=== PATIENT | female | born 1955 | race Caucasian/White ===

== ENCOUNTER 2018-06-02 00:34 | Emergency (ER) | payer OTHER, SELFPAY ==
--- NOTE | 2018-06-02 00:39 | ED.NECK ---
HPI - Neck Pain/Injury General Chief Complaint: Extremity Problem,Nontraumatic Stated Complaint: NECK PAIN/RIGHT ARM PAIN SAW CHIROPRACTOR Time Seen by Provider: 06/02/18 00:36 Source: patient and family Mode of arrival: ambulatory Limitations: no limitations History of Present Illness HPI Narrative: 63-year-old female nonsmoker with history of hypertension presents with a friend in the chief complaint of neck pain with radiation to her right shoulder and upper arm. Any motion of her neck great significant pain that seems to radiate down her arm. She has some numbness and tingling right shoulder. She denies any specific injury. she saw a chiropractor and had an adjustment earlier and that seemed to maybe help. She denies any focal neurologic findings such as blurred vision, trouble with speech or weakness of her arm. She denies any chest pain or shortness of breath. She is not dizzy nor weak or lightheaded. She is not diaphoretic nor nauseous and has not vomited MD complaint: neck pain Onset (ago): day(s) Radiation: right lateral Severity: moderate Quality: sharp and aching Duration: intermittent Relieving factors: remaining still Exacerbating factors: movement of extremity and movement of neck Associated symptoms: numbness and tingling Treatments prior to arrival: heat therapy Related Data Home Medications Medication Instructions Recorded Confirmed [red rice yeast] #0 10/22/16 aspirin 81 mg PO QDAY #0 10/22/16 cholecalciferol (vitamin D3) 5,000 unit PO #0 10/22/16 coenzyme Q10 [Co Q-10] 100 mg PO #0 10/22/16 cyanocobalamin (vitamin B-12) 5,000 mcg PO #0 10/22/16 folic acid 0.8 mg PO QDAY #0 10/22/16 hydrochlorothiazide 12.5 mg PO QDAY #0 10/22/16 losartan 50 mg PO QDAY #0 10/22/16 niacin [Niaspan Extended-Release] 500 mg PO QDAY #0 10/22/16 omega 3-qrv-vas-fish oil [Fish Oil] 1,000 mg PO #0 10/22/16 Previous Rx's Medication Instructions Recorded methylprednisolone 4 mg PO QDAY #1 pac 10/22/16 nabumetone 750 mg PO QDAY #30 tab 10/22/16 cyclobenzaprine 10 mg PO TID PRN #14 tab 06/02/18 hydrocodone-acetaminophen 1 tab PO Q4-6H PRN #10 tab 06/02/18 ibuprofen 600 mg PO TID-QID PRN #20 tab 06/02/18 methylprednisolone [Medrol (Go)] See Rx Instructions .ROUTE 06/02/18 .COMPLEX #21 each Allergies Allergy/AdvReac Type Severity Reaction Status Date / Time No Known Allergies Allergy Uncoded 06/03/17 11:54 Review of Systems Constitutional Denies chills, Denies fever(s), Denies lethargy and Denies weakness Eyes Denies change in vision, Denies eye discharge, Denies irritation and Denies loss of vision ENT Ears, Nose, Mouth, and Throat: Denies change in voice, Reports neck pain and Denies sore throat Cardiovascular Denies chest pain, Denies irregular heart rhythm, Denies lightheadedness, Denies palpitations, Denies dyspnea, Denies dyspnea on exertion and Denies orthopnea Respiratory Denies cough, Denies dyspnea, Denies dyspnea on exertion and Denies wheezing Gastrointestinal Gastrointestinal: Denies abdominal pain, Denies change in bowel habits, Denies diarrhea, Denies nausea and Denies vomiting Genitourinary Denies hematuria, Denies flank pain, Denies urinary incontinence and Denies urinary urgency Musculoskeletal Reports limited range of motion, Reports neck pain, Reports radiating pain into limb and Reports tingling Integumentary/Breasts Denies pruritus, Denies erythema, Denies rash and Denies wounds Neurologic Denies confusion, Denies loss of vision, Reports tingling and Denies weakness Psychiatric Denies anxiety, Denies confusion, Denies depression, Denies homicidal ideation and Denies suicidal ideation Endocrine Denies palpitations Hematologic/Lymphatic Denies easy bruising Allergic/Immunologic Denies wheezing PFSH Social History Smoking Status: Former smoker Social History Smoking Status: Former smoker Exam Narrative Exam Narrative: GENERAL: 63-year-old female resting comfortably, obvious episodes of discomfort, remaining quite still HEAD: Atraumatic. Normocephalic. No temporal or scalp tenderness. EYES: Pupils equal round and reactive. Extraocular motions intact. No scleral icterus. No injection or drainage. ENT: Nose without bleeding, purulent drainage or septal hematoma. Throat without erythema, tonsillar hypertrophy or exudate. Uvula midline. Airway patent. NECK: Trachea midline. No JVD or lymphadenopathy. Pain to palpation of right lateral paraspinal muscles. Axial loading seems to exacerbate the pain in the side of her neck some. CARDIOVASCULAR: Regular rate and rhythm without murmurs, gallops, or rubs. RESPIRATORY: Clear to auscultation. Breath sounds equal bilaterally. No wheezes, rales, or rhonchi. GASTROINTESTINAL: Abdomen soft, non-tender, nondistended. No hepato-splenomegaly, or palpable masses. No guarding. EXTREMITIES: Pain on palpation of supraspinatus and infrahilar spine anus as well as right paraspinal musculature No clubbing, cyanosis, or edema. No joint tenderness, effusion, or edema noted. BACK: Nontender without deformity or crepitance. No flank tenderness. NEURO: AOx3. full sensation and strenght of RUE SKIN: No rash or erythema. Initial Vital Signs Initial Vital Signs: Vital Signs Temperature 97.8 F 06/02/18 00:50 Pulse Rate 71 06/02/18 00:50 Respiratory Rate 16 06/02/18 00:50 Blood Pressure 155/69 H 06/02/18 00:50 Pulse Oximetry 97 06/02/18 00:50 Procedures Orthopedic Splinting/Casting Injury #1: Post splinting neuro exam: intact Post splinting vascular exam: intact Placed by: Nursing Additional Comments: soft cervical collar applied Course Orders Ordered: ED Orders 06/02/18 00:53 EKG-12 Lead Stat Discontinued Medications Cyclobenzaprine HCl (Flexeril 10 Mg Prepack) 1 bottle [facility] ONE Stop: 06/02/18 01:55 Last Admin: 06/02/18 02:07 Dose: 1 bottle Vital Signs - 8 hr 06/02/18 00:50 06/02/18 02:43 Temperature 97.8 F Pulse Rate 71 70 Respiratory Rate 16 16 Blood Pressure 155/69 H 162/58 H Pulse Oximetry 97 99 MDM - Neck Pain/Injury MDM Narrative Medical decision making narrative: Multiple etiologies for patient's symptoms considered including: [Coronary artery disease versus cervical radiculopathy versus dissection versus other] Patient's symptoms improved or duration of stay with above-stated therapies. Findings and discharge diagnosis discussed with patient/family followed by verbalization of understanding Return precautions discussed with patient/family whom verbalize understanding. Discharge Plan Departure Patient Disposition: Home Clinical Impression: Cervical radiculopathy Discharge Date/Time: 06/02/18 02:44 Interventions: ED Discharge Assessment Last Done: 06/02/18 02:43 Instructions: DI for Cervical Radiculopathy Activity Restrictions/Additional Instructions: You have been prescribed narcotic medications. While on these medications you cannot drive or operate heavy machinery. Additionally you cannot sign legal documents or perform any duties such as this. 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 Please understand that we cannot provide further refills of narcotics or controlled substances through the ED and your pain management will need to be through your Primary Care Provider Prescriptions: New cyclobenzaprine 10 mg tablet 10 mg PO TID PRN (Reason: muscle spasm) Qty: 14 RF: 0 hydrocodone-acetaminophen 5-325 mg tablet 1 tab PO Q4-6H PRN (Reason: pain) Qty: 10 RF: 0 ibuprofen 600 mg tablet 600 mg PO TID-QID PRN (Reason: pain) Qty: 20 RF: 0 methylprednisolone [Medrol (Og)] 4 mg tablets,dose pack See Rx Instructions .ROUTE .COMPLEX Qty: 21 RF: 0 No Action losartan 50 MG tablet 50 mg PO QDAY Qty: 0 RF: 0 hydrochlorothiazide 12.5 MG capsule 12.5 mg PO QDAY Qty: 0 RF: 0 aspirin 81 MG tablet,chewable 81 mg PO QDAY Qty: 0 RF: 0 niacin [Niaspan Extended-Release] 500 MG tablet extended release 24 hr 500 mg PO QDAY Qty: 0 RF: 0 omega 4-pen-pqc-fish oil [Fish Oil] 1,000 MG capsule 1,000 mg PO Qty: 0 RF: 0 cholecalciferol (vitamin D3) 5,000 UNIT capsule 5,000 unit PO Qty: 0 RF: 0 [red rice yeast] Qty: 0 RF: 0 coenzyme Q10 [Co Q-10] 100 MG capsule 100 mg PO Qty: 0 RF: 0 folic acid 0.8 MG tablet 0.8 mg PO QDAY Qty: 0 RF: 0 cyanocobalamin (vitamin B-12) 5,000 MCG tablet,disintegrating 5,000 mcg PO Qty: 0 RF: 0 nabumetone 750 MG tablet 750 mg PO QDAY Qty: 30 RF: 2 methylprednisolone 4 MG tablets,dose pack 4 mg PO QDAY Qty: 1 RF: 0 Referrals: Nicole Salmeron MD [Primary Care Provider] - Riaz eSo MD [Physician] -
[2018-06-02 00:50] VITALS: BP 155/69; PULSE 71; RESP 16; TEMP 36.6; O2SAT 97; BMI 33.0
[2018-06-02] MEDS: CYCLOBENZAPRINE 10 MG PREPACK 1 BOTTLE MISC (02:07)
[2018-06-02 02:43] VITALS: BP 162/58; PULSE 70; RESP 16; O2SAT 99
--- NOTE | 2018-06-02 03:51 | ED_ITS ---
HPI - Neck Pain/Injury General Chief Complaint: Extremity Problem,Nontraumatic Stated Complaint: NECK PAIN/RIGHT ARM PAIN SAW CHIROPRACTOR Time Seen by Provider: 06/02/18 00:36 Source: patient and family Mode of arrival: ambulatory Limitations: no limitations History of Present Illness HPI Narrative: 63-year-old female nonsmoker with history of hypertension presents with a friend in the chief complaint of neck pain with radiation to her right shoulder and upper arm. Any motion of her neck great significant pain that seems to radiate down her arm. She has some numbness and tingling right shoulder. She denies any specific injury. she saw a chiropractor and had an adjustment earlier and that seemed to maybe help. She denies any focal neurologic findings such as blurred vision, trouble with speech or weakness of her arm. She denies any chest pain or shortness of breath. She is not dizzy nor weak or lightheaded. She is not diaphoretic nor nauseous and has not vomited MD complaint: neck pain Onset (ago): day(s) Radiation: right lateral Severity: moderate Quality: sharp and aching Duration: intermittent Relieving factors: remaining still Exacerbating factors: movement of extremity and movement of neck Associated symptoms: numbness and tingling Treatments prior to arrival: heat therapy Related Data Home Medications Medication Instructions Recorded Confirmed [red rice yeast] #0 10/22/16 aspirin 81 mg PO QDAY #0 10/22/16 cholecalciferol (vitamin D3) 5,000 unit PO #0 10/22/16 coenzyme Q10 [Co Q-10] 100 mg PO #0 10/22/16 cyanocobalamin (vitamin B-12) 5,000 mcg PO #0 10/22/16 folic acid 0.8 mg PO QDAY #0 10/22/16 hydrochlorothiazide 12.5 mg PO QDAY #0 10/22/16 losartan 50 mg PO QDAY #0 10/22/16 niacin [Niaspan Extended-Release] 500 mg PO QDAY #0 10/22/16 omega 9-xgx-chu-fish oil [Fish Oil] 1,000 mg PO #0 10/22/16 Previous Rx's Medication Instructions Recorded methylprednisolone 4 mg PO QDAY #1 pac 10/22/16 nabumetone 750 mg PO QDAY #30 tab 10/22/16 cyclobenzaprine 10 mg PO TID PRN #14 tab 06/02/18 hydrocodone-acetaminophen 1 tab PO Q4-6H PRN #10 tab 06/02/18 ibuprofen 600 mg PO TID-QID PRN #20 tab 06/02/18 methylprednisolone [Medrol (Og)] See Rx Instructions .ROUTE 06/02/18 .COMPLEX #21 each Allergies Allergy/AdvReac Type Severity Reaction Status Date / Time No Known Allergies Allergy Uncoded 06/03/17 11:54 Review of Systems Constitutional Denies chills, Denies fever(s), Denies lethargy and Denies weakness Eyes Denies change in vision, Denies eye discharge, Denies irritation and Denies loss of vision ENT Ears, Nose, Mouth, and Throat: Denies change in voice, Reports neck pain and Denies sore throat Cardiovascular Denies chest pain, Denies irregular heart rhythm, Denies lightheadedness, Denies palpitations, Denies dyspnea, Denies dyspnea on exertion and Denies orthopnea Respiratory Denies cough, Denies dyspnea, Denies dyspnea on exertion and Denies wheezing Gastrointestinal Gastrointestinal: Denies abdominal pain, Denies change in bowel habits, Denies diarrhea, Denies nausea and Denies vomiting Genitourinary Denies hematuria, Denies flank pain, Denies urinary incontinence and Denies urinary urgency Musculoskeletal Reports limited range of motion, Reports neck pain, Reports radiating pain into limb and Reports tingling Integumentary/Breasts Denies pruritus, Denies erythema, Denies rash and Denies wounds Neurologic Denies confusion, Denies loss of vision, Reports tingling and Denies weakness Psychiatric Denies anxiety, Denies confusion, Denies depression, Denies homicidal ideation and Denies suicidal ideation Endocrine Denies palpitations Hematologic/Lymphatic Denies easy bruising Allergic/Immunologic Denies wheezing PFSH Social History Smoking Status: Former smoker Social History Smoking Status: Former smoker Exam Narrative Exam Narrative: GENERAL: 63-year-old female resting comfortably, obvious episodes of discomfort, remaining quite still HEAD: Atraumatic. Normocephalic. No temporal or scalp tenderness. EYES: Pupils equal round and reactive. Extraocular motions intact. No scleral icterus. No injection or drainage. ENT: Nose without bleeding, purulent drainage or septal hematoma. Throat without erythema, tonsillar hypertrophy or exudate. Uvula midline. Airway patent. NECK: Trachea midline. No JVD or lymphadenopathy. Pain to palpation of right lateral paraspinal muscles. Axial loading seems to exacerbate the pain in the side of her neck some. CARDIOVASCULAR: Regular rate and rhythm without murmurs, gallops, or rubs. RESPIRATORY: Clear to auscultation. Breath sounds equal bilaterally. No wheezes, rales, or rhonchi. GASTROINTESTINAL: Abdomen soft, non-tender, nondistended. No hepato- splenomegaly, or palpable masses. No guarding. EXTREMITIES: Pain on palpation of supraspinatus and infrahilar spine anus as well as right paraspinal musculature No clubbing, cyanosis, or edema. No joint tenderness, effusion, or edema noted. BACK: Nontender without deformity or crepitance. No flank tenderness. NEURO: AOx3. full sensation and strenght of RUE SKIN: No rash or erythema. Initial Vital Signs Initial Vital Signs: Vital Signs Temperature 97.8 F 06/02/18 00:50 Pulse Rate 71 06/02/18 00:50 Respiratory Rate 16 06/02/18 00:50 Blood Pressure 155/69 H 06/02/18 00:50 Pulse Oximetry 97 06/02/18 00:50 Procedures Orthopedic Splinting/Casting Injury #1: Post splinting neuro exam: intact Post splinting vascular exam: intact Placed by: Nursing Additional Comments: soft cervical collar applied Course Orders Ordered: ED Orders 06/02/18 00:53 EKG-12 Lead Stat Discontinued Medications Cyclobenzaprine HCl (Flexeril 10 Mg Prepack) 1 bottle [facility] ONE Stop: 06/02/18 01:55 Last Admin: 06/02/18 02:07 Dose: 1 bottle Vital Signs - 8 hr 06/02/18 00:50 06/02/18 02:43 Temperature 97.8 F Pulse Rate 71 70 Respiratory Rate 16 16 Blood Pressure 155/69 H 162/58 H Pulse Oximetry 97 99 MDM - Neck Pain/Injury MDM Narrative Medical decision making narrative: Multiple etiologies for patient's symptoms considered including: [Coronary artery disease versus cervical radiculopathy versus dissection versus other] Patient's symptoms improved or duration of stay with above-stated therapies. Findings and discharge diagnosis discussed with patient/family followed by verbalization of understanding Return precautions discussed with patient/family whom verbalize understanding. Discharge Plan Departure Patient Disposition: Home Clinical Impression: Cervical radiculopathy Discharge Date/Time: 06/02/18 02:44 Interventions: ED Discharge Assessment Last Done: 06/02/18 02:43 Instructions: DI for Cervical Radiculopathy Activity Restrictions/Additional Instructions: You have been prescribed narcotic medications. While on these medications you cannot drive or operate heavy machinery. Additionally you cannot sign legal documents or perform any duties such as this. 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 Please understand that we cannot provide further refills of narcotics or controlled substances through the ED and your pain management will need to be through your Primary Care Provider Prescriptions: New cyclobenzaprine 10 mg tablet 10 mg PO TID PRN (Reason: muscle spasm) Qty: 14 RF: 0 hydrocodone-acetaminophen 5-325 mg tablet 1 tab PO Q4-6H PRN (Reason: pain) Qty: 10 RF: 0 ibuprofen 600 mg tablet 600 mg PO TID-QID PRN (Reason: pain) Qty: 20 RF: 0 methylprednisolone [Medrol (Og)] 4 mg tablets,dose pack See Rx Instructions .ROUTE .COMPLEX Qty: 21 RF: 0 No Action losartan 50 MG tablet 50 mg PO QDAY Qty: 0 RF: 0 hydrochlorothiazide 12.5 MG capsule 12.5 mg PO QDAY Qty: 0 RF: 0 aspirin 81 MG tablet,chewable 81 mg PO QDAY Qty: 0 RF: 0 niacin [Niaspan Extended-Release] 500 MG tablet extended release 24 hr 500 mg PO QDAY Qty: 0 RF: 0 omega 3-plu-kgp-fish oil [Fish Oil] 1,000 MG capsule 1,000 mg PO Qty: 0 RF: 0 cholecalciferol (vitamin D3) 5,000 UNIT capsule 5,000 unit PO Qty: 0 RF: 0 [red rice yeast] Qty: 0 RF: 0 coenzyme Q10 [Co Q-10] 100 MG capsule 100 mg PO Qty: 0 RF: 0 folic acid 0.8 MG tablet 0.8 mg PO QDAY Qty: 0 RF: 0 cyanocobalamin (vitamin B-12) 5,000 MCG tablet,disintegrating 5,000 mcg PO Qty: 0 RF: 0 nabumetone 750 MG tablet 750 mg PO QDAY Qty: 30 RF: 2 methylprednisolone 4 MG tablets,dose pack 4 mg PO QDAY Qty: 1 RF: 0 Referrals: Nicole Salmeron MD [Primary Care Provider] - Riaz Seo MD [Physician] -
== END 2018-06-02 02:44 | disposition home or self-care (01) ==
PROVIDERS: Emergency Provider Emergency Medicine; PCP Internal Medicine
DX: M54.12 Radiculopathy, cervical region (principal); M79.601 Pain in right arm; R20.0 Anesthesia of skin
CPT/HCPCS: 93005; 93010; 99282; 99283

== ENCOUNTER 2018-11-12 14:50 | Emergency (ER) | payer OTHER, SELFPAY ==
[2018-11-12 14:55] VITALS: BP 142/70; PULSE 74; RESP 15; TEMP 35.9; O2SAT 96; BMI 33.0
--- NOTE | 2018-11-12 15:18 | DI.CT.S_ITS ---
PROCEDURE: CT FACIAL BONES WO CON INDICATIONS: fall facial pain and bruising, on aspirin TECHNIQUE: Noncontrast 2.5 mm thick axial images acquired from the mandible through the frontal sinuses, with coronal and sagittal reformatting. For radiation dose reduction, the following was used: automated exposure control, adjustment of mA and/or kV according to patient size. COMPARISON: None. FINDINGS: Image quality: Excellent. Bones and teeth: Orbital lofton are intact. Sinus lofton show no fracture or deformity. Nasal bones and septum are intact. Visualized portions of the mandible demonstrate no fractures or subluxation. Zygomatic arches are intact. Pterygoid plates are intact. Visualized portions of the skull base and auditory canals are intact. Sinuses: Paranasal sinuses are aerated, without fluid levels, mucosal thickening, or mucoceles. Mastoid air cells are aerated. Soft tissues: No edema, masses, or fluid collections. No enlarged lymph nodes. No soft tissue lacerations or debris. Vascular: Visualized vascular structures appear normal in the absence of contrast. Bony vascular foramina and canals are intact. IMPRESSION: No evidence of displaced facial bone fracture or mandibular fracture. Dictated by: Sebastián Arcos M.D. on 11/12/2018 at 15:55 Approved by: Sebastián Arcos M.D. on 11/12/2018 at 15:57
--- NOTE | 2018-11-12 15:18 | DI.CT.S_ITS ---
PROCEDURE: CT HEAD/BRAIN WO CON INDICATIONS: fall head injury aspirin TECHNIQUE: Noncontrast 4.5 mm thick angled axial sections acquired from the foramen magnum to the vertex, with coronal and sagittal reformats. For radiation dose reduction, the following was used: automated exposure control, adjustment of mA and/or kV according to patient size. COMPARISON: None. FINDINGS: Image quality: Excellent. CSF spaces: Basal cisterns are patent. No extra-axial fluid collections. The ventricles are symmetric in size and shape. Brain: No intracranial bleeds or masses. There is cerebral volume loss for age, with resultant ventricular and sulcal prominence. There are periventricular and deep white matter chronic small vessel ischemic changes. There is intracranial internal carotid artery atherosclerosis. Skull and face: Calvarium and visualized facial bones appear intact, without suspicious lesions. Sinuses: Visualized sinuses and mastoids are clear. IMPRESSION: Negative for acute stroke, hemorrhage, or mass. No evidence of significant intracranial sequelae of acute trauma. Mild small vessel ischemic change. Dictated by: Sebastián Arcos M.D. on 11/12/2018 at 15:54 Approved by: Sebastián Arcos M.D. on 11/12/2018 at 15:54
--- NOTE | 2018-11-12 15:38 | ED_ITS ---
HPI - Fall General Chief Complaint: Fall Stated Complaint: fall thursday, hit head on shower, mltp complaint Time Seen by Provider: 11/12/18 15:18 Source: patient Mode of arrival: Ambulatory Limitations: no limitations History of Present Illness HPI Narrative: 63-year-old female nonsmoker with noncontributory medical history presents with a chief complaint of bruising around her right eye. She suffered a ground level mechanical fall a few days ago which she struck the top of her head on the shower head. She takes no blood thinners but does take baby aspirin. She denies any LOC and has full recall of the event. She does have a contusion on the top of her head and had another contusion on her forehead but denies any more recent falls or injuries. She has no blurred vision or double vision. She has no significant pain. In fact she did not even notice the bruising until it was pointed out to her by a mergers and acquisitions banker. She is here for further evaluation MD complaint: fall Onset (ago): day(s) Fall from: standing Fall witnessed: no Place fall occurred: home Loss of consciousness: none Prolonged down time: no Symptoms prior to fall: none Context: tripped/slipped Location of injury: head Severity: mild Associated symptoms (after fall): denies Related Data Home Medications Medication Instructions Recorded Confirmed [red rice yeast] #0 10/22/16 aspirin 81 mg PO QDAY #0 10/22/16 cholecalciferol (vitamin D3) 5,000 unit PO #0 10/22/16 coenzyme Q10 [Co Q-10] 100 mg PO #0 10/22/16 cyanocobalamin (vitamin B-12) 5,000 mcg PO #0 10/22/16 folic acid 0.8 mg PO QDAY #0 10/22/16 hydrochlorothiazide 12.5 mg PO DAILY #0 10/22/16 11/12/18 losartan 50 mg PO DAILY #0 10/22/16 11/12/18 niacin [Niaspan Extended-Release] 500 mg PO QDAY #0 10/22/16 omega [id number]-fish oil [Fish Oil] 1,000 mg PO #0 10/22/16 Previous Rx's Medication Instructions Recorded cyclobenzaprine 10 mg PO TID PRN #14 tab 06/02/18 hydrocodone-acetaminophen 1 tab PO Q4-6H PRN #10 tab 06/02/18 ibuprofen 600 mg PO TID-QID PRN #20 tab 06/02/18 Allergies Allergy/AdvReac Type Severity Reaction Status Date / Time No Known Allergies Allergy Uncoded 06/03/17 11:54 Review of Systems Constitutional Constitutional: Denies chills, Denies fatigue, Denies fever(s), Denies frequent falls, Denies lethargy and Denies weakness Eyes Eyes: Denies change in vision, Denies eye discharge, Denies irritation and Denies loss of vision ENT Ears, Nose, Mouth, and Throat: Denies change in voice, Denies dizziness, Denies neck pain, Denies sore throat and Denies throat swelling Cardiovascular Cardiovascular: Denies chest pain, Denies irregular heart rhythm, Denies lightheadedness, Denies palpitations, Denies dyspnea, Denies dyspnea on exertion and Denies orthopnea Respiratory Respiratory: Denies cough, Denies dyspnea, Denies dyspnea on exertion and Denies wheezing Gastrointestinal Gastrointestinal: Denies abdominal pain, Denies change in bowel habits, Denies diarrhea, Denies nausea and Denies vomiting Genitourinary Genitourinary: Denies hematuria, Denies flank pain, Denies urinary incontinence and Denies urinary urgency Musculoskeletal Musculoskeletal: Denies back pain, Denies muscle weakness, Denies neck pain, Denies numbness and Denies tingling Integumentary/Breasts Skin/Breast: Denies pruritus, Denies erythema, Denies rash, Reports unusual bruising and Denies wounds Neurologic Neurologic: Denies behavioral changes, Denies confusion, Denies dizziness, Denies frequent falls, Denies loss of vision, Denies numbness, Denies tingling and Denies weakness Psychiatric Psychiatric: Denies anxiety, Denies behavioral changes, Denies confusion, Denies depression, Denies homicidal ideation and Denies suicidal ideation Endocrine Endocrine: Denies fatigue, Denies flushing and Denies palpitations Hematologic/Lymphatic Hematologic/Lymphatic: Denies easy bruising Allergic/Immunologic Allergic/Immunologic: Denies urticaria, Denies throat swelling and Denies wheezing Exam Narrative Exam Narrative: GENERAL: [63] year old patient appears stated age. Well- nourished, well-developed patient, in mild distress. GCS 15 HEAD: Tender contusion midline parietal scalp. No depressed skull fracture, Muñoz sign or other indications of significant injury EYES: Dark purplish ecchymosis in the medial canthus of the right eye with no change and extraocular motions Pupils equal round and reactive. Extraocular motions intact. No scleral icterus. No injection or drainage. ENT: Nose without bleeding, purulent drainage. Throat without erythema, tonsillar hypertrophy or exudate. Airway patent. NECK: Trachea midline. Non tender CARDIOVASCULAR: Regular rate and rhythm without murmurs, gallops, or rubs. RESPIRATORY: Clear to auscultation. Breath sounds equal bilaterally. No wheezes, rales, or rhonchi. GASTROINTESTINAL: Abdomen soft, non-tender, nondistended. EXTREMITIES: No edema or joint tenderness. BACK: Nontender without deformity or crepitance. No flank tenderness. NEURO: AOx3. SKIN: No rash or erythema of visible areas Initial Vital Signs Initial Vital Signs: Vital Signs Temperature 96.7 F L 11/12/18 14:55 Pulse Rate 74 11/12/18 14:55 Respiratory Rate 15 11/12/18 14:55 Blood Pressure 142/70 H 11/12/18 14:55 Pulse Oximetry 96 11/12/18 14:55 [facility] Social History Smoking Status: Former smoker Social History Smoking Status: Former smoker Course Orders Ordered: ED Orders 11/12/18 15:18 CT facial bones wo con Stat CT head/brain wo con Stat Vital Signs Vital signs: Vital Signs - 8 hr 11/12/18 14:55 11/12/18 16:56 Temperature 96.7 F L Pulse Rate 74 71 Respiratory Rate 15 17 Blood Pressure 142/70 H Blood Pressure [Right Arm] 150/74 H Pulse Oximetry 96 98 MDM - Fall Imaging Data head / facial bones: Radiologist's impression: [address] [address] [address] Scan Report Signed Patient: Reynaldo Gomez [facility]#: [id number] : [id number]:[id number] Age/Sex: 63 / FDate of Service: 11/12/18 Loc: ED Accession Number: [id number] Procedure: CT head/brain wo con Ordering Provider: Christiano Nichols D.O. PROCEDURE: CT HEAD/BRAIN WO CON INDICATIONS: fall head injury aspirin TECHNIQUE: Noncontrast 4.5 mm thick angled axial sections acquired from the foramen magnum to the vertex, with coronal and sagittal reformats. For radiation dose reduction, the following was used: automated exposure control, adjustment of mA and/or kV according to patient size. COMPARISON: None. FINDINGS: Image quality: Excellent. CSF spaces: Basal cisterns are patent. No extra-axial fluid collections. The ventricles are symmetric in size and shape. Brain: No intracranial bleeds or masses. There is cerebral volume loss for age, with resultant ventricular and sulcal prominence. There are periventricular and deep white matter chronic small vessel ischemic changes. There is intracranial internal carotid artery atherosclerosis. Skull and face: Calvarium and visualized facial bones appear intact, without suspicious lesions. Sinuses: Visualized sinuses and mastoids are clear. IMPRESSION: Negative for acute stroke, hemorrhage, or mass. No evidence of significant intracranial sequelae of acute trauma. Mild small vessel ischemic change. Dictated by: Sebastián Arcos M.D. on 11/12/2018 at 15:54 Approved by: Sebastián Arcos M.D. on 11/12/2018 at 15:54 Reynaldo Gomez 63 F 1955 [place] [address] CT Scan Report Signed Patient: Reynaldo Gomez [facility]#: [id number] : [id number]:[id number] Age/Sex: 63 / FDate of Service: 11/12/18 Loc: ED Accession Number: [id number] Procedure: CT facial bones wo con Ordering Provider: Christiano Nichols D.O. PROCEDURE: CT FACIAL BONES WO CON INDICATIONS: fall facial pain and bruising, on aspirin TECHNIQUE: Noncontrast 2.5 mm thick axial images acquired from the mandible through the frontal sinuses, with coronal and sagittal reformatting. For radiation dose reduction, the following was used: automated exposure control, adjustment of mA and/or kV according to patient size. COMPARISON: None. FINDINGS: Image quality: Excellent. Bones and teeth: Orbital lofton are intact. Sinus lofton show no fracture or deformity. Nasal bones and septum are intact. Visualized portions of the mandible demonstrate no fractures or subluxation. Zygomatic arches are intact. Pterygoid plates are intact. Visualized portions of the skull base and auditory canals are intact. Sinuses: Paranasal sinuses are aerated, without fluid levels, mucosal thickening, or mucoceles. Mastoid air cells are aerated. Soft tissues: No edema, masses, or fluid collections. No enlarged lymph nodes. No soft tissue lacerations or debris. Vascular: Visualized vascular structures appear normal in the absence of contrast. Bony vascular foramina and canals are intact. IMPRESSION: No evidence of displaced facial bone fracture or mandibular fracture. Dictated by: Sebastián Arcos M.D. on 11/12/2018 at 15:55 Approved by: Sebastián Arcos M.D. on 11/12/2018 at 15:57 [facility] Narrative Medical decision making narrative: Multiple etiologies for patient's symptoms considered including: [Subdural hematoma versus intraparenchymal hemorrhage versus orbital fracture versus nasal bone fracture versus other] Patient's symptoms improved or duration of stay with above-stated therapies. Findings and discharge diagnosis discussed with patient/family followed by verbalization of understanding Return precautions discussed with patient/family whom verbalize understanding. Discharge Plan Departure Patient Disposition: Home Clinical Impression: Contusion of face Qualifiers: Encounter type: initial encounter Qualified Code(s): S00.83XA - Contusion of other part of head, initial encounter Discharge Date/Time: 11/12/18 16:59 Instructions: How to Prevent Falls Activity Restrictions/Additional Instructions: *You have been diagnosed with [fall with facial contusion] *What to do: *Take medications as directed *Follow up with your primary care provider in 2-3 days, call for an appointment. Let them know you were seen in the Emergency Department and that we ask that you be seen in follow up *Return to ER if you should have any new, worsening or concerning symptoms] Prescriptions: No Action losartan 50 MG tablet 50 mg PO DAILY Qty: 0 RF: 0 hydrochlorothiazide 12.5 MG capsule 12.5 mg PO DAILY Qty: 0 RF: 0 aspirin 81 MG tablet,chewable 81 mg PO QDAY Qty: 0 RF: 0 niacin [Niaspan Extended-Release] 500 MG tablet extended release 24 hr 500 mg PO QDAY Qty: 0 RF: 0 omega 0-pst-knj-fish oil [Fish Oil] 1,000 MG capsule 1,000 mg PO Qty: 0 RF: 0 cholecalciferol (vitamin D3) 5,000 UNIT capsule 5,000 unit PO Qty: 0 RF: 0 [red rice yeast] Qty: 0 RF: 0 coenzyme Q10 [Co Q-10] 100 MG capsule 100 mg PO Qty: 0 RF: 0 folic acid 0.8 MG tablet 0.8 mg PO QDAY Qty: 0 RF: 0 cyanocobalamin (vitamin B-12) 5,000 MCG tablet,disintegrating 5,000 mcg PO Qty: 0 RF: 0 cyclobenzaprine 10 mg tablet 10 mg PO TID PRN (Reason: muscle spasm) Qty: 14 RF: 0 hydrocodone-acetaminophen 5-325 mg tablet 1 tab PO Q4-6H PRN (Reason: pain) Qty: 10 RF: 0 ibuprofen 600 mg tablet 600 mg PO TID-QID PRN (Reason: pain) Qty: 20 RF: 0 Referrals: Nicole Salmeron MD [Primary Care Provider] -
[2018-11-12 16:56] VITALS: BP 150/74; PULSE 71; RESP 17; O2SAT 98
== END 2018-11-12 16:59 | disposition home or self-care (01) ==
PROVIDERS: Emergency Provider Emergency Medicine; PCP Internal Medicine
DX: S00.83XA Contusion of other part of head, initial encounter (principal); W19.XXXA Unspecified fall, initial encounter
CPT/HCPCS: 70450; 70486; 99282; 99284

== ENCOUNTER → 2021-02-04 11:54 | Outpatient (CLI) | payer OTHER, SELFPAY ==
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
== END ==
PROVIDERS: PCP Internal Medicine; Referring Provider Nurse Practitioner Family; Visit Provider Nurse Practitioner Family
DX: M25.562 Pain in left knee (principal); M25.462 Effusion, left knee
CPT/HCPCS: 73562